=== PATIENT | female | born 1955 | race Caucasian/White ===

== ENCOUNTER → 2016-06-11 | Outpatient (CLI) | payer MEDICARE, OTHER ==
[~2016-06-11] MED LIST: 5-HTP100 MG PO; ARMOUR THYROID60 MG PO; ATARAX 25MG25 MG/TAB PO; B-COMPLEX PLUS1 TAB PO; CAL-MAG1 TAB PO; CATAPRES 0.1MG0.1 MG PO; CEPHALEXIN500 M1 PO; COQ(10)1010 MG PO; DECADRON 4MG TAB4 MG PO; GARLIC1 TAB PO; LEVAQUIN 750MG750 M1 PO; LOPREEZA1 TAB PO; MAXZIDE-25MG TA1 TAB PO; MELATONIN3 M1 PO; MOBIC15 MG PO; MULTI VITAMINS1 TAB PO; OMEGA 31000 MG PO; PERCOCET 325 MG1 TA2 PO; PLAQUENIL 200M200 MG PO; PREMPRO 0.625/21 TAB; PREMPRO 0.625/21 TAB PO; PREVACID 30MG30 M1 PO; PROTONIX 40MG T40 MG PO; ROXICODONE 55 MG/TAB PO; SEROQUEL 2525 MG/TAB PO; VALERIAN500 MG PO; VERELAN240 MG PO; VITAMIN D1000 IU PO; XANAX 1MG1 MG PO; [UNRECOGNIZED DRUG - OTHER]; [UNRECOGNIZED DRUG - OTHER] PO; [UNRECOGNIZED DRUG - OTHER] PO
== END ==
LOC: BHSO 14:40
DX: F06.32 Mood disorder due to known physiological condition with major depressive-like episode (principal)

== ENCOUNTER → 2016-10-31 | Outpatient (CLI) | payer MEDICARE, OTHER | LOC: COL.RAD 10-24 14:45 | DX: M75.121 Complete rotator cuff tear or rupture of right shoulder, not specified as traumatic (principal); M75.81 Other shoulder lesions, right shoulder; M75.51 Bursitis of right shoulder; M19.011 Primary osteoarthritis, right shoulder ==

== ENCOUNTER → 2016-11-22 | Outpatient (CLI) | payer MEDICARE, OTHER | LOC: COL.RAD 12:30 | DX: M75.122 Complete rotator cuff tear or rupture of left shoulder, not specified as traumatic (principal); M19.012 Primary osteoarthritis, left shoulder; M75.82 Other shoulder lesions, left shoulder ==

== ENCOUNTER → 2017-01-17 | Outpatient (CLI) | payer MEDICARE, OTHER | LOC: BHSO 15:16 | DX: F06.32 Mood disorder due to known physiological condition with major depressive-like episode (principal) ==

== ENCOUNTER 2017-01-21 14:08 | Outpatient (RCR) | payer OTHER | END 2017-02-25 15:26 | disposition home or self-care (01) | LOC: WSOH 14:08 | DX: M25.511 Pain in right shoulder (principal); M25.531 Pain in right wrist; M25.521 Pain in right elbow; S80.00XA Contusion of unspecified knee, initial encounter; W01.0XXA Fall on same level from slipping, tripping and stumbling without subsequent striking against object, initial encounter; Y92.008 Other place in unspecified non-institutional (private) residence as the place of occurrence of the external cause; Y99.0 Civilian activity done for income or pay; Z88.1 Allergy status to other antibiotic agents; Z88.5 Allergy status to narcotic agent; Z88.0 Allergy status to penicillin; Z88.2 Allergy status to sulfonamides; Z96.653 Presence of artificial knee joint, bilateral | CPT/HCPCS: G0283-GP ==

== ENCOUNTER → 2017-02-01 | Outpatient (CLI) | payer OTHER | LOC: COL.RAD 14:18 | DX: S46.011A Strain of muscle(s) and tendon(s) of the rotator cuff of right shoulder, initial encounter (principal); S46.211A Strain of muscle, fascia and tendon of other parts of biceps, right arm, initial encounter; M89.311 Hypertrophy of bone, right shoulder ==

== ENCOUNTER → 2017-04-18 | Outpatient (CLI) | payer OTHER | LOC: BHSO 16:20 | DX: F06.32 Mood disorder due to known physiological condition with major depressive-like episode (principal) | CPT/HCPCS: G0463 ==

== ENCOUNTER → 2017-09-10 | Outpatient (CLI) | payer MEDICARE, OTHER | LOC: BHSO 15:43 | DX: F06.32 Mood disorder due to known physiological condition with major depressive-like episode (principal) | CPT/HCPCS: G0463 ==

== ENCOUNTER → 2018-03-11 | Outpatient (CLI) | payer MEDICARE, OTHER | LOC: BHSO 15:41 | DX: F06.32 Mood disorder due to known physiological condition with major depressive-like episode (principal) | CPT/HCPCS: G0463 ==

== ENCOUNTER → 2018-09-02 | Outpatient (CLI) | payer MEDICARE, OTHER | LOC: BHSO 15:44 | DX: F06.32 Mood disorder due to known physiological condition with major depressive-like episode (principal) | CPT/HCPCS: G0463 ==

== ENCOUNTER → 2018-11-28 | Outpatient (CLI) | payer MEDICARE, OTHER ==
[2018-11-28 12:25] LABS: HEMOGLOBIN 13.6 g/dl (12.5-16.0); MEAN CELL VOLUME 94 fl (80.0-100.0); MEAN CORPUSCULAR HEMOGLOBIN 31 pg (27.0-31.0); MEAN CORPUSCULAR HGB CONC 32 g/dl (33.0-37.0); MEAN PLATELET VOLUME 9.1 fl (7.4-10.4); PLATELET COUNT 171 K/mm3 (130-400); RED BLOOD COUNT 4.46 M/mm3 (4.10-5.30); REDCELL DISTRIBUTION WIDTH-CV 13.1 % (11.5-14.5)
[2018-11-28 12:44] LABS: ERYTHROCYTE SEDIMENTATION RATE 2 mm/hr (0-30)
== END ==
LOC: COL.LAB 11:56
PROVIDERS: Orthopaedic Surgery
DX: M25.461 Effusion, right knee (principal)

== ENCOUNTER → 2019-03-03 | Outpatient (CLI) | payer MEDICARE, OTHER | LOC: BHSO 15:07 | DX: F06.32 Mood disorder due to known physiological condition with major depressive-like episode (principal) | CPT/HCPCS: G0463 ==

== ENCOUNTER → 2019-09-15 | Outpatient (CLI) | payer MEDICARE, OTHER | LOC: BHSO 15:29 | DX: F06.32 Mood disorder due to known physiological condition with major depressive-like episode (principal) | CPT/HCPCS: G0463 ==

== ENCOUNTER → 2019-12-22 | Outpatient (CLI) | payer MEDICARE, OTHER | LOC: BHSO 15:40 | DX: F06.32 Mood disorder due to known physiological condition with major depressive-like episode (principal) | CPT/HCPCS: G0463 ==

== ENCOUNTER → 2020-10-28 | Outpatient (CLI) | payer MEDICARE | LOC: COL.RAD 10:48 | DX: K22.4 Dyskinesia of esophagus (principal) ==

== ENCOUNTER 2023-11-07 13:07 | Emergency (ER) | payer MEDICARE ==
[~2023-11-07] VITALS: Ht 172.7 cm; Wt 93.2 kg
[2023-11-07 13:11] VITALS: TEMP 98.7
[2023-11-07 13:50] LABS: BASO % 0.5 % (0.0-2.0); EOS # 0.1 K/mm3 (0.0-0.7); EOS % 2.3 % (0.0-4.0); GRAN # 3.1 K/mm3 (1.4-6.5); GRAN % 51.1 % (42.2-75.2); HEMATOCRIT 47.1 % (37.0-47.0); HEMOGLOBIN 15.1 g/dl (12.5-16.0); LYMPH # 2.2 K/mm3 (1.2-3.4); LYMPH % 36.6 % (20.0-51.0); MEAN CELL VOLUME 93 fl (80.0-100.0); MEAN CORPUSCULAR HEMOGLOBIN 30 pg (27-31); MEAN CORPUSCULAR HGB CONC 32 g/dl (33.0-37.0); MEAN PLATELET VOLUME 9.2 fl (7.4-10.4); MONO # 0.6 K/mm3 (0.1-0.6); PLATELET COUNT 209 K/mm3 (130-400); RED BLOOD COUNT 5.08 M/mm3 (4.10-5.30); REDCELL DISTRIBUTION WIDTH-CV 12.7 % (11.5-14.5)
[2023-11-07 14:07] LABS: ALANINE AMINOTRANSFERASE 23 U/L (0-55); ALBUMIN 4.2 g/dL (3.4-4.8); ALKALINE PHOSPHATASE 57 U/L (40-150); ANION GAP 9 mmol/L (7-16); AST,SGOT 33 U/L (5-34); BILIRUBIN,TOTAL 0.8 mg/dL (0.2-1.2); BLOOD UREA NITROGEN 13 mg/dL (10-20); CALCIUM 9.6 mg/dL (8.4-10.2); CHLORIDE 103 mEq/L (98-107); CREATININE, serum 0.75 mg/dL (0.57-1.11); GLUCOSE 101 mg/dL (70-99); SODIUM 139 mEq/L (136-145); TOTAL PROTEIN 7.6 g/dl (6.2-8.1)
[2023-11-07] MEDS ORDERED: hydrALAZINE 20 MG/ML 1 ML VIAL IV ONE (14:15)
[2023-11-07 14:16] LABS: TROPONIN-I < 0.010 ng/mL (0.00-0.033)
[2023-11-07] MEDS ORDERED: APRESOLINE 10MG10 MG PO (14:47)
[2023-11-07] MEDS ORDERED: PRINIVIL10 MG PO (14:57)
[2023-11-07 15:48] VITALS: BP 166/92; PULSE 60
== END 2023-11-07 15:55 | disposition home or self-care (01) ==
LOC: COL.ER 13:07
PROVIDERS: Emergency Medicine
DX: I10 Essential (primary) hypertension (principal); R73.9 Hyperglycemia, unspecified; Z87.891 Personal history of nicotine dependence
CPT/HCPCS: J0360

== ENCOUNTER → 2023-11-27 | Outpatient (CLI) | payer MEDICARE ==
[~2023-11-27] MED LIST changes: +APRESOLINE 10MG10 MG PO; +PRINIVIL10 MG PO
== END ==
LOC: MHCPAIN 08:47
DX: M47.816 Spondylosis without myelopathy or radiculopathy, lumbar region (principal); M48.061 Spinal stenosis, lumbar region without neurogenic claudication; M79.7 Fibromyalgia; M41.86 Other forms of scoliosis, lumbar region; I10 Essential (primary) hypertension
CPT/HCPCS: G0463